=== PATIENT | male | born 1945 | race Caucasian/White ===

== ENCOUNTER 2023-11-14 08:13 | Observation (INO) ==
--- NOTE | 2023-10-14 14:02 | PAT Medication Instructions ---
Medication Instructions Date of Service October 14, 2023 Home Medications aspirin 325 mg tablet (Leon Aspirin) 325 mg PO QAM carvedilol 3.125 mg tablet 3.125 mg PO BID cholecalciferol (vitamin D3) 125 mcg (5,000 unit) capsule 125 mcg PO HS famotidine 20 mg tablet 20 mg PO HS fenofibrate nanocrystallized 145 mg tablet 145 mg PO QAM lisinopril 5 mg tablet 5 mg PO QAM multivitamin 1 tab PO HS rosuvastatin 20 mg tablet 20 mg PO HS coenzyme Q10 100 mg capsule (Co Q-10) 100 mg PO HS MEDICATION INSTRUCTIONS: ASK your prescriber and surgeon aspirin 325 mg tablet (Leon Aspirin) 325 mg PO QAM STOP taking 2 weeks before surgery coenzyme Q10 100 mg capsule (Co Q-10) 100 mg PO HS STOP taking 24 hours before surgery fenofibrate nanocrystallized 145 mg tablet 145 mg PO QAM DO NOT take the morning of surgery lisinopril 5 mg tablet 5 mg PO QAM Take morning of surgery With a small sip of water, OTHERWISE NOTHING TO EAT OR DRINK AFTER MIDNIGHT: carvedilol 3.125 mg tablet 3.125 mg PO BID Take evening before surgery famotidine 20 mg tablet 20 mg PO HS multivitamin 1 tab PO HS rosuvastatin 20 mg tablet 20 mg PO HS cholecalciferol (vitamin D3) 125 mcg (5,000 unit) capsule 125 mcg PO HS carvedilol 3.125 mg tablet 3.125 mg PO BID Other Notes If you have any questions please call us at [phone] or [phone] or [phone] or [phone]
--- NOTE | 2023-10-20 11:18 | Anesthesiology Consultation ---
Date of Service October 20, 2023 Assessment & Plan (1) Encounter for pre-operative examination: - awaiting PCP clearance, Dr. Harris PH D. PAT testing and optimization form regarding abnormal CXR to be faxed to PCP. Message left requesting return call for patient. Surgeon's office made aware. - Outpatient joint assessment: Patient is currently scheduled for inpatient pathway. If re-evaluated and patient/surgeon requests outpatient pathway, patient is not recommended candidate for outpatient joint program from anesthesia standpoint. Chart Review Chart Review: Pending: Refer to Additional Notes / Consult section and Patient seen in Pre Admission Testing Teaching & Discussion Pre-Anesthesia Teaching/Discussion Notes: Instructed NPO after midnight before surgery, except medications with 15 cc of water. Medication instructions provided according to the PAT guidelines. History Surgery Operation Date: 11/14/23 10:40 Proposed Procedures p Left Total Knee Arthroplasty - Kyaw Vázquez MD Height/Weight Height: 6 ft 1 in Weight: 94.8 kg Allergies Allergy/AdvReac Type Severity Reaction Status Date / Time No Known Allergies Allergy Verified 10/06/23 07:32 Medications Home Medications Medication Instructions Recorded Confirmed Last Taken aspirin 325 mg tablet (Leon 325 mg PO QAM 01/01/21 10/06/23 Unknown Aspirin) carvedilol 3.125 mg tablet 3.125 mg PO BID 01/01/21 10/06/23 Unknown cholecalciferol (vitamin D3) 125 125 mcg PO HS 01/01/21 10/06/23 Unknown mcg (5,000 unit) capsule famotidine 20 mg tablet 20 mg PO HS 01/01/21 10/06/23 Unknown fenofibrate nanocrystallized 145 145 mg PO QAM 01/01/21 10/06/23 Unknown mg tablet lisinopril 5 mg tablet 5 mg PO QAM 01/01/21 10/06/23 Unknown multivitamin 1 tab PO HS 01/01/21 10/06/23 Unknown rosuvastatin 20 mg tablet 20 mg PO HS 01/01/21 10/06/23 Unknown coenzyme Q10 100 mg capsule (Co 200 mg PO HS 10/06/23 10/20/23 Unknown Q-10) walker #1 ea 10/20/23 Unknown Additional Notes: Patient was instructed and it was written on provided medication instructions that fenofibrate needs stopped 48 hours priori to surgery. He verbalize dunderstanding and agreement, denied questions or concerns. 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 Lumbar spondylosis PMR (polymyalgia rheumatica) no recent flares Patient denies h/o seizures, heart attack, heart failure, DM, blood clots/DVTs or blood transfusions. Exercise / Class Metabolic Activity II 4-5 Yardwork/Stairs/Walk up hill (denies chest discomfort or shortness of breath with one flight of stairs) Past Surgical History Surgical History H/O hernia repair inguinal, left, done 2x H/O lumbosacral spine surgery ~2003, lower lumbar Hx of bilateral cataract extraction Hx of colonoscopy Past Anesthesia History No Hx of Anesthesia Complications and No Family Hx of Anesthesia Complications History of PONV No Hx of PONV and No Hx of Motion Sickness Social History Smoking Status: Former smoker Do You Dip or Chew Tobacco: No Smoking End Date: many years ago Hx Alcohol Use: Yes Alcohol type: beer and hard liquor alcohol intake frequency: other Alcohol Intake Frequency Comment: ~3 beers/drinks per month Hx Substance Use: No substance use type: does not use Review of Systems Patient denies chest pain, shortness of breath, dyspnea on exertion, snoring, witnessed apneas, fever, chills, cough, wheezing, or palpitations. Physical Exam Vital Signs Vitals BP 126/84 P 57 TEMP 97.7 SP02 97% on RA RESP 18 Physical Patient resting comfortably in chair in no acute distress, alert and oriented, responding appropriately throughout visit Full cervical extension range of motion without pain TMD 3.5 finger breadths Mallampati Score 2 Dentition: repaired front upper teeth, denies chipped or loose teeth, caps/crowns, implants or bridges Lungs: normal respiratory effort. Good air movement, clear throughout to auscultation, no adventitious breath sounds Cardiac: regular rate and rhythm, no murmurs noted Carotid arteries: negative bruit bilat Lab Results Anesthesia Preop Results Results Anesthesia Widget: WBC 4.24 K/ul (4.8-10.8) L 10/20/23 Hgb 13.3 g/dl (14.0-18.0) L 10/20/23 Hct 39.9 % (42.0-52.0) L 10/20/23 Plt 203 K/uL (130-400) 10/20/23 Na 137 mmol/L (136-145) 10/20/23 K 4.5 mmol/L (3.5-5.1) 10/20/23 Cl 105 mmol/L (98-107) 10/20/23 CO2 25 mmol/L (21-32) 10/20/23 BUN 21 mg/dl (6-23) 10/20/23 Creat 1.08 mg/dl (0.6-1.4) 10/20/23 Glucose Level 120 mg/dl (70-99(Fasting)) H 10/20/23 PT 12.3 Seconds (9.0-12.0) H 10/20/23 PTT 25 Seconds (21-31) 10/20/23 INR 1.1 (0.9-1.1) 10/20/23 Blood Type A Positive 10/20/23 Antibody Screen NEGATIVE 10/20/23 Testing Electrocardiogram Date: 10/20/23 NSR, rate [address] abnormality Chest X-Ray Date: 10/20/23 1. Mild cardiomegaly with no active disease in the chest. 2. There is nonspecific enlargement of the left hilum which may represent dilatation of the pulmonary artery. Correlation with a contrast enhanced chest CT is recommended to exclude underlying hilar lesion. Echocardiogram Date: 12/04/21 EF 40% Moderate diffuse hypokinesis No gross valve pathology Stress Test Date: 03/14/23 Lexiscan Small fixed nontransmural perfusion defect at the septal, basilar left ventricular myocardium. This likely represents old infarct, similar to prior exam. No reversibility to suggest stress-induced ischemia Mild global hypokinesia similar compared to prior exam No focal wall motion abnormalities EF 49%
[~2023-11-14 08:13] MED LIST: ROPIVACAINE 0.5% 5 MG/ML 30 ML VIAL ONE
--- NOTE | 2023-11-14 08:32 | History & Physical Bridge Note ---
Date of Service November 14, 2023 History & Physical Bridge Note I have examined the patient, reviewed the History & Physical and in the interval since the performance of the History & Physical I have noted the following changes of clinical significance: no changes noted
[2023-11-14] MEDS ORDERED: MIDAZOLAM HCL 1 MG/ML 2ML VIAL ONE (09:28)
[2023-11-14] MEDS: LR 500ML BOLUS, THEN 15ML/HR IV SCH (09:30)
[2023-11-14] MEDS: LR 60ML/HR IV SCH (09:31)
[2023-11-14] MEDS ORDERED: ONDANSETRON INJ 2 MG/ML 2 ML VIAL ONE (09:31)
[2023-11-14] MEDS ORDERED: PROPOFOL IV EMULSION 10 MG/ML 20 ML VIAL IV ONE (09:31)
[2023-11-14] MEDS ORDERED: LIDOCAINE 2% 2 ML VIAL/AMP(20MG/ML) INFIL ONE (09:31)
[2023-11-14] MEDS: ACETAMINOPHEN 500 MG TAB PO SCH ×2 (09:43→15:37)
[2023-11-14] MEDS: METOCLOPRAMIDE HCL 10 MG TABLET PO SCH (09:43)
[2023-11-14] MEDS: dexAMETHasone**PF** 10 MG/ML VIAL IV SCH (09:44)
[2023-11-14] MEDS: FAMOTIDINE 20 MG TAB PO SCH ×2 (09:44→20:41)
[2023-11-14] MEDS: CeleBREX 200 MG CAP PO SCH (09:44)
[2023-11-14] MEDS ORDERED: ePHEDrine sulfate 50 MG/ML AMP IV PRN (09:48)
[2023-11-14] MEDS ORDERED: HYDROmorphone INJ 1 MG/ML SYRINGE IV PRN (09:48)
[2023-11-14] MEDS ORDERED: ONDANSETRON INJ 2 MG/ML 2 ML VIAL IV PRN ×2 (09:48→14:14)
[2023-11-14] MEDS ORDERED: ATROPINE SULFATE 0.1 MG/ML 10ML SYR IV PRN (09:48)
[2023-11-14] MEDS ORDERED: KETOROLAC TROMETHAMINE 15 MG/ML VIAL IV PRN (09:52)
[2023-11-14] MEDS: ceFAZolin 2000MG 2,000 MG/15 ML SYR IV SCH ×2 (10:54→18:04)
[2023-11-14] MEDS ORDERED: ePHEDrine sulfate 50 MG/ML AMP ONE (11:18)
[2023-11-14] MEDS: ORTHO JOINT ANESTHETIC ONE (11:25)
[2023-11-14] MEDS: TRANEXAMIC ACID 1,000 MG **IV Intra-op IV SCH (11:55)
[2023-11-14] MEDS: ROPIV 0.5% 246mg, Ketorolac 30mg, EPINEPHrine 0.5mg in NSS INFIL SCH (11:58)
--- NOTE | 2023-11-14 13:10 | Operative Report ---
PG Post Operative Report Pre & Post Diagnosis Operation Date: 11/14/23 10:40 Pre-Op Diagnosis: Left Knee Degenerative Joint Disease Post-Op Diagnosis: Left Knee Degenerative Joint Disease I identified the patient and participated in the time-out.: Yes Procedure Operation Date: 11/14/23 10:40 Actual Procedures p Left Total Knee Arthroplasty(Left) - Kyaw Vázquez MD Surgeon Kyaw Vázquez MD Community [employer]ment Act Officer None Estimated Blood Loss 100 Findings Consistent with Post-Op Diagnosis Operative findings were advanced left knee DJD. He extensive grade 4 [id number] disease particularly the lateral compartment with a where the posterior lateral tibial plateau and eburnation of the entire lateral side. A valgus deformity to his knee. Moderate-sized joint effusion. Specimens Left knee sent for pathology. Anesthesia Type Spinal MAC Complications none Disposition Accompanied Patient To Recovery: No Indications The patient is 78-year-old very active gentleman with a long history of bilateral knee pain discomfort left side greater than right. Is been through extensive conservative treatment over the years which became less successful particular for the left knee. X-rays show advanced lateral compartment arthritis. He elected proceed with total knee arthroplasty. Description of Procedure Operative implants consist of: 1 Biomet Vanguard size 72.5 left posterior stabilized femoral component. 2. Biomet size 79 tibial tray. 3. 12 mm posterior stabilized polyethylene insert. 4. 34 x 8 and half all poly patella. The patient was taken the op room, identified, placed on the operating table in the supine position. All contact areas were appropriately padded. IV antibiotics tried by anesthesia team. A spinal anesthetic and abductor canal block had been applied in the holding area. Left thigh turn was then placed. Left lower extremity was then prepped and draped in usual sterile fashion. The left leg was elevated and exsanguinated with use of an Esmarch and the tourniquet was placed at 300 mmHg. An anterior approach the left knee was then performed to longitudinal incision centered over the patella. Sharp dissection carried through subcutaneous tissue down the extensor mechanism. Medial parapatellar arthrotomy incision was made. Some subperiosteal dissection was carried out medially. The fat pad was resected from Neath patella tendon. The lateral patellofemoral ligament was released. Patella subluxated laterally and the knee was flexed. The osteophyte taken off distal femur. The ACL and PCL were then released from distal femur and the tibia subluxated anteriorly. The external treatment line jig was then placed on the anterior face of the tibia and adjusted 12 mm medially. Proximal tibial cut was made remove about 2 to 3 mm of bone from the medial side. The tibia sized to a size 79. Attention drawn the femur. The distal femur was then with a sharp drill. Intramedullary canal was suction. A left 5 degree valgus cutting guide was placed. The distal femoral cutting block was pinned in place. Distal femoral cut was made to take an additional 3 mm of bone off distal femur. The knee was brought out into full extension. I did do some pie crusting of the IT band in order to equalize extension gap. The femur was then sized to a size 72.5. The AP cutting block was pinned parallel to the epicondylar axis which was 6 degrees of external rotation. The anterior cut, anterior chamfer, posterior cut, posterior chamfer cuts were made. The box cutting guide was placed in just slight lateral and the box cut was made. The knee was flexed. The remnants of the medial and lateral menisci were excised. The osteophytes taken off the posterior aspect the femur. I did release the popliteus tendon laterally in order to equalize the flexion gap. A trial femoral component was placed for the tibial tray was pinned Nellie external rotation and the drill and stem punch were used to create defect in proximal tibia for the tibial tray. Knee was then trialed and the 12 mm insert fit most appropriately. Attention drawn the patella. The patella was cleaned of all soft tissue. Patella thickness measured 23 mm in thickness was cut down to 14. Was sized to a size 34 patella. The lateral osteophyte was removed. Patella button was placed. Knee was taken through range of motion and the patella tracked nicely with no thumbs test. Attention drawn to place the permanent components. All trial components were removed. A bone plug was placed in the distal femur limit blood loss. Double batch Palacos G cement was mixed. Biomet Vanguard size 72.5 left posterior stabilized femoral component, size 79 tibial tray, a 12 mm posterior stabilized polyethylene insert, and a 34 x 8 and half all poly patella then cemented in place. The knee was brought out into full extension till cement hardened. Final cement check was then performed. The pericapsular tissues were injected with 100 cc of Ortho mix. The patient did receive 1 g tranexamic acid. The tourniquet was then let down for tourniquet time 67 minutes. Hemostasis assured use electrocautery. The wound was once again irrigated. I did using Betadine soaked and soaked in knee for 3 minutes. The knee was then irrigated extensively. Extensor Metros then closed with combination 1 PDS suture #1 Vicryl suture in [id number] fashion. Extensor Meclomen checked found to be intact through subcutaneous tissue then closed with 2 Dexon suture in a buried interrupted fashion skin was closed skin sea. Leg was then cleaned and dried and sterile dressing with Xeroform, 4 fours, sterile cast padding, Selvin bandage were applied. The patient then transferred to the recovery in stable condition. Patient tolerated procedure well and there are no complications. I attest to the content of the Intraoperative Record and any orders documented therein. Any exceptions are noted below.
--- NOTE | 2023-11-14 13:57 | Anesthesiology Progress Note ---
Date of Service November 14, 2023 Anesthesia Post Procedure Vital Signs Vital Signs: Temp Pulse Pulse Resp BP BP Pulse Ox 11/14/23 13:50 36.5 C 76 16 117/72 98 11/14/23 13:40 82 17 129/82 97 11/14/23 13:30 81 17 126/82 100 11/14/23 13:20 74 14 124/80 96 11/14/23 13:10 81 18 124/83 97 11/14/23 12:59 36.8 C 78 16 114/78 97 11/14/23 09:06 36.7 C 71 20 141/103 H 142/103 H 98 O2 Del Method O2 Flow Rate 11/14/23 13:50 Room Air 11/14/23 13:40 Room Air 1 11/14/23 13:30 Room Air 11/14/23 13:20 Oxymask 1 11/14/23 13:10 Oxymask 3 11/14/23 12:59 Oxymask 5 11/14/23 09:06 Room Air Pain Intensity Left Knee: Pain Intensity: 0 Transfer of Care Handoff Completed per policy Notes Mental Status: alert / awake / arousable Patient Amnestic to Procedure: Yes Nausea / Vomiting: adequately controlled Pain: adequately controlled Airway Patency, RR, SpO2: stable & adequate BP & HR: stable & adequate Hydration State: stable & adequate Neuraxial Anesthesia: was administered and sensory block is resolving Anesthetic Complications: no major complications apparent
[2023-11-14] MEDS ORDERED: METOCLOPRAMIDE HCL INJ 5 MG/ML 2 ML VIAL IV PRN (14:14)
[2023-11-14] MEDS ORDERED: MAGNESIUM HYDROXIDE SUSP 30 ML UDC PO PRN (14:14)
[2023-11-14] MEDS ORDERED: bisacodyL 10 MG SUPP PR PRN (14:14)
[2023-11-14] MEDS ORDERED: HYDROmorphone INJ 0.5 MG/0.5 ML SYR IV PRN (14:14)
[2023-11-14] MEDS ORDERED: ALUMINUM/MAGNESIUM SUSP 30 ML UDC PO PRN (14:14)
[2023-11-14] MEDS ORDERED: NALOXONE HCL 0.4 MG/1 ML VIAL/CARP IV PRN (14:14)
[2023-11-14] MEDS: SODIUM CHLORIDE 0.9% 1,000 ML IV SCH (14:54)
--- NOTE | 2023-11-14 15:30 | XRay Report ---
XR knee LT 1 or 2V routine CLINICAL HISTORY: Surgical Post Op TECHNIQUE: 2 views of the left knee were obtained. Comparison: Comparison is made to knee radiograph 10/20/2023 FINDINGS: Patient is status post total knee arthroplasty with expected postsurgical changes including soft tiss ue swelling and subcutaneous emphysema. No periarticular lucency or hardware fracture is seen. IMPRESSION: Expected postoperative appearance status post placement of total knee arthroplasty. ACT 112: Negative or not required by law. Electronically signed by: Jim Wolf M.D. 11/14/2023 3:28 PM
[2023-11-14] MEDS: ASCORBIC ACID 500 MG TAB PO SCH (16:49)
[2023-11-14] MEDS: TRANEXAMIC ACID / 0.7% NACL 1,000 MG/100 ML BAG IV SCH (18:01)
[2023-11-14] MEDS: oxyCODONE HCL IR 5 MG TAB (IMMEDIATE RELEASE) PO PRN (18:03)
[2023-11-14] MEDS: SENNA 8.6 MG TAB PO SCH (20:40)
[2023-11-14] MEDS: KETOROLAC TROMETHAMINE 15 MG/ML VIAL IV SCH (20:40)
[2023-11-14] MEDS: ASPIRIN 81 MG ECTAB PO SCH (20:41)
[2023-11-14] MEDS: CHOLECALCIFEROL 125 MCG (5,000 UNITS) TAB PO SCH (20:41)
[2023-11-14] MEDS: carvediloL 3.125 MG TAB PO SCH (20:41)
[2023-11-14] MEDS: ROSUVASTATIN CALCIUM 20 MG TAB PO SCH (20:41)
[2023-11-14] MEDS: DOCUSATE SODIUM 100 MG CAP PO SCH (20:41)
[2023-11-14] MEDS ORDERED: NON-FORMULARY MEDICATION (Coenzyme Q10 [Co Q-10] 100 mg Capsule) PO SCH (21:00)
[2023-11-14] MEDS ORDERED: SENNA 8.6 MG TAB PO SCH (21:00)
[2023-11-14] MEDS ORDERED: MULTIVITAMIN TAB PO SCH (21:00)
[2023-11-15 07:50] LABS: Hematocrit (blood only) 31.8 % (42.0-52.0); Hemoglobin 10.6 g/dl (14.0-18.0); Mean Corpuscular Hemoglobin 31.7 pg (25.0-34.0); Mean Corpuscular Hgb Conc 33.3 g/dL (32.0-36.0); Mean Corpuscular Volume 95.2 fL (80.0-100.0); Mean Platelet Volume 10.2 fL (9.4-12.4); Platelet Count 191 K/uL (130-400); RDW Coefficient of Variation 11.8 % (11.5-14.5); Red Blood Count 3.34 M/uL (4.70-6.10); White Blood Count 10.97 K/ul (4.8-10.8)
[2023-11-15 08:05] LABS: BUN Creatinine Ratio 27.9 (10-20); Calcium 8.6 mg/dl (8.6-10.3); Est GFR (African American) 72.8 ml/min; Est GFR (Non-African American) 62.8 ml/min; Potassium 4.4 mmol/L (3.5-5.1)
--- NOTE | 2023-11-15 08:05 | Orthopedic Progress Note ---
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 Pain is controlled. He is neurologically stable. Plan: 1. DVT prophylaxis including thigh-high teds, SCDs, aspirin twice a day. 2. PT/OT. He can fully weight-bear as tolerated. Left total knee protocol. 3. Pain control doing well with current pain regimen. 4. Disposition plan to discharge to home. He is can have local home health for the first 2 weeks. Admission and Anticipated Discharge Date Admission Date: November 14, 2023 Subjective 78-year-old gentleman postop day 1 from a left knee replacement. He is doing pretty well. Had a pretty good night. Pain is very well-controlled. No chest pain or shortness of breath. Not feeling dizzy or lightheaded. Physical Exam Physical Exam: Physical examination is a pleasant middle-age male. He is sitting up in bed and eating breakfast. He looks completely comfortable. Examination of the left leg reveals dressing be clean dry and intact. He is got a chronic nerve palsy and cannot dorsiflex or terri his foot. Good plantarflexion. Brisk refill. Respiratory: normal respiratory effort, lungs clear to auscultation Cardiovascular: RRR, no murmur, no edema Gastrointestinal (Abdomen): normal bowel sounds, soft, nontender, no hepatosplenomegaly Results & Data Vital Signs (Past 12 Hours) Vital Signs Temp Pulse Resp BP Pulse Ox O2 Del Method 11/15/23 07:09 36.6 C 81 16 132/80 97 Room Air 11/15/23 06:34 36.4 C L 86 16 128/81 97 Room Air 11/15/23 02:19 36.4 C L 80 16 122/76 98 Room Air 11/14/23 21:52 36.4 C L 97 H 16 103/67 97 Room Air 11/14/23 20:37 106 H 150/78 H 95 Room Air Laboratory Results Hemoglobin is 10.6. Hematocrit is 31.8. Electrolytes are pending.
[2023-11-15] MEDS: dexAMETHasone 10 MG in SYRINGE 0 ML IV SCH (09:20)
[2023-11-15] MEDS: TAMSULOSIN HCL 0.4 MG CAP PO SCH (09:23)
[2023-11-15] MEDS: MULTIVITAMIN TAB PO SCH (09:23)
[2023-11-15] MEDS: FENOFIBRATE NANOCRYSTALLIZED 145 MG TABLET PO SCH (09:23)
[2023-11-15] MEDS: lisinopril 5 MG TAB PO SCH (09:23)
--- NOTE | 2023-11-18 06:38 | Discharge Summary ---
Date of Service November 18, 2023 Discharge Data Procedures Performed Operation Date: 11/14/23 10:40 Actual Procedures p Left Total Knee Arthroplasty(Left) - Kyaw Vázquez MD Hospital Course (1) Status post left knee replacement: This is a 78 year old patient admitted on 11/14/23 and underwent total knee arthroplasty. He tolerated the procedure well and there were no complications. Transferred to the PACU post op and later to the orthopedic floor for further care. He was given ancef for antibiotic prophylaxis. He was also given DOMENICO stockings, SCDs, and aspirin for DVT prophylaxis. Hemoglobin, hematocrit, and vital signs were monitored during his hospital stay and remained stable. Did not require any blood transfusions. There were no complications during his hospital stay. By post op day #1 the patient was tolerating a regular diet, pain was reasonably controlled with oral pain medicine, and he was participating in physical therapy. On post op day #1 the patient was discharged home and set up with home health care. He was given printed discharge instructions including prescriptions for extra strength tylenol, aspirin, cefadroxil, ketorolac, zofran, senokot, flomas, and oxycodone. Continue physical therapy, weight bearing as tolerated. Continue DOMENICO stockings. Follow up approximately 2 weeks post op or sooner if there are problems or concerns. Coding Level of Care Code None Diagnoses Status post left knee replacement Z96.652
== END 2023-11-15 11:17 | disposition home health service (06) ==
LOC: ASU 08:13 → 3E 08:13